=== PATIENT | male | born 1950 | race Caucasian/White ===

== ENCOUNTER → 2016-09-10 | Outpatient (CLI) | payer BC ==
[~2016-09-10] MED LIST: 5-HT1CAP PO; ASPCH81X PO; B-COCAP2 PO; CHOL1000 PO; CLB/200 PO; IBUP-1427 PO; MULT-513 PO; OMEG10007 PO; OMEP20CA9 PO; PRAV20TA PO; RANI300T2 PO; RANI75TA19 PO; RIZA10TA19 PO; VITAMIN D PO; ZPAK; [UNRECOGNIZED DRUG - OTHER] PO; [UNRECOGNIZED DRUG - OTHER] PO
[2016-09-10 11:06] LABS: HEMATOCRIT 42.4 % (42-52); MEAN CELL VOLUME 90.2 fL (80-100); MEAN CORPUSCULAR HEMOGLOBIN 31.7 pg (25-34); MEAN CORPUSCULAR HGB CONC 35.1 g/dl (32-36); MEAN PLATELET VOLUME 10.5 fL (7.4-10.4); PLATELET COUNT 219 K/uL (130-400)
[2016-09-10 11:47] LABS: FERRITIN 93.3 ng/ml (8.0-388.0)
== END | disposition home or self-care (01) ==
LOC: C.LAB 10:34
DX: D50.9 Iron deficiency anemia, unspecified (principal); E55.9 Vitamin D deficiency, unspecified; K90.9 Intestinal malabsorption, unspecified

== ENCOUNTER 2017-01-13 03:33 | Emergency (ER) | payer BC ==
[~2017-01-13] VITALS: Ht 180.3 cm; Wt 78.6 kg
[~2017-01-13 03:33] MED LIST changes: -5-HT1CAP PO; -CHOL1000 PO; -IBUP-1427 PO; -OMEG10007 PO; -RANI300T2 PO
[2017-01-13 03:38] VITALS: TEMP 36.8; Ht 180.3 cm; Wt 78.6 kg
--- NOTE | 2017-01-13 03:50 | EMERGENCY ROOM VISIT NOTE ---
History Report prepared by Latasha: Francoise Cardenas Under the Supervision of: Dr. Hansel Ash M.D. First contact with patient: 03:35 Stated Complaint: CHEST PAIN History of Present Illness The patient is a 66 year old male who presents to the Emergency Room with complaints of sudden chest pain that began around 0130 this morning. The patient states that this morning he was woken with sudden chest pain and additionally noticed left shoulder and left arm. He describes his pain in his chest as a tightness. The patient states that he became diaphoretic and woke his . He denies any nausea or vomiting. The patient states that his chest pain has slightly alleviated, but states that he still has the left shoulder and left arm pain. The patient's notes that he gave the patient a 500 mg Octavio extra strength aspirin prior to arrival. The patient reports that he takes 81 mg of aspirin daily. He states that he now feels weak, but denies any shortness of breath. The patient states that he recently traveled [place] and [facility] and notes that he has had some back pain. He denies any history of blood clots. The patient states that he has nitroglycerin at home, but denies using it. He reports a history of a pacemaker. 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 He reports that he has had increased swelling to his lower extremities. Source of History: patient, spouse/significant other () Onset: 0130 this morning Position: chest Quality: other (tightness) Timing: other (sudden) Associated Symptoms: + back pain, No SOB, No nausea, No vomiting Note: Associated Symptoms: left shoulder pain, left arm pain, increased swelling to lower extremities. Review of Systems See HPI for pertinent positives & negatives. A total of 10 systems reviewed and were otherwise negative. Past Medical & Surgical Medical Problems: (1) Hiatal hernia (2) HTN (hypertension) (3) Pacemaker Surgical Problems: (1) S/P appendectomy Family History Heart disease Hypertension Social History Smoking Status: Never Smoker Alcohol Use: none Marital Status: Housing Status: lives with significant other Occupation Status: employed Current/Historical Medications Scheduled 2-Qym-Muhuxlcl-Niacin-Vitamin (5-Htp), 1 CAP PO DAILY Aspirin (Aspirin Chewable), 81 MG PO QAM Cholecalciferol (Vitamin D3), Unknown Dose PO DAILY Fish Oil ([place]roy-3), 1 CAP PO DAILY Multivitamins/Minerals (Mvi With Minerals), 1 TAB PO DAILY Pravastatin (Pravachol ), 10 MG PO QAM Ranitidine (Zantac), 300 MG PO HS Scheduled PRN Ibuprofen Tab (Motrin), 600 MG PO Q6H PRN for Pain Rizatriptan Benzoate (Maxalt-Field Appraiser), 10 MG PO PRN/UD PRN for Migraine Allergies Coded Allergies: Acetaminophen (Verified Adverse Reaction, Unknown, NAUSEA, 06/01/10) Replaces ROXICET SOLN Oxycodone (Verified Adverse Reaction, Unknown, NAUSEA, 06/01/10) Replaces ROXICET SOLN Physical Exam Vital Signs Date Time Temp Pulse Resp B/P (MAP) Pulse Ox O2 Delivery O2 Flow Rate FiO2 01/13/17 04:48 53 18 117/70 97 Room Air 01/13/17 03:45 53 01/13/17 03:38 36.8 52 18 125/76 97 Room Air Physical Exam GENERAL: Patient is uncomfortable appearing and in minimal distress. HEENT: No acute trauma, normocephalic atraumatic, mucous membranes moist, no nasal congestion, no scleral icterus. NECK: No stridor, no adenopathy, no meningismus, trachea is midline. LUNGS: No dyspnea. Clear to auscultation and equal bilaterally. No wheeze, no rhonchi. HEART: Regular rate and rhythm. No murmurs, rubs, gallops appreciated. ABDOMEN: Soft, nontender, bowel sounds positive, no masses appreciated, no peritonitis. BACK: No midline tenderness, no CVA tenderness EXTREMITIES: Normal motion all extremities, no cyanosis, no edema. NEUROLOGIC: Alert and oriented, no acute motor or sensory deficits, no focal weakness, cranial nerves grossly intact. SKIN: No rash, no jaundice, no diaphoresis. Medical Decision & Procedures ER Provider Diagnostic Interpretation: X ray results are stated below per my interpretation: Chest: 1 view: No infiltrate, no effusion, normal cardiac border. Laboratory Results 01/13/17 04:00 Red Blood Count 4.67, Mean Corpuscular Volume 92.3, Mean Corpuscular Hemoglobin 31.5, Mean Corpuscular Hemoglobin Concent 34.1, Mean Platelet Volume 10.8, Neutrophils (%) (Auto) 46.6, Lymphocytes (%) (Auto) 38.4, Monocytes (%) (Auto) 8.7, Eosinophils (%) (Auto) 5.6, Basophils (%) (Auto) 0.5, Neutrophils # (Auto) 2.89, Lymphocytes # (Auto) 2.38, Monocytes # (Auto) 0.54, Eosinophils # (Auto) 0.35, Basophils # (Auto) 0.03 01/13/17 04:00 Test 01/13/17 04:00 White Blood Count 6.20 K/uL (4.8-10.8) Red Blood Count 4.67 M/uL (4.7-6.1) Hemoglobin 14.7 g/dL (14.0-18.0) Hematocrit 43.1 % (42-52) Mean Corpuscular Volume 92.3 fL (80-100) Mean Corpuscular Hemoglobin 31.5 pg (25-34) Mean Corpuscular Hemoglobin Concent 34.1 g/dl (32-36) Platelet Count 217 K/uL (130-400) Mean Platelet Volume 10.8 fL (7.4-10.4) Neutrophils (%) (Auto) 46.6 % Lymphocytes (%) (Auto) 38.4 % Monocytes (%) (Auto) 8.7 % Eosinophils (%) (Auto) 5.6 % Basophils (%) (Auto) 0.5 % Neutrophils # (Auto) 2.89 K/uL (1.4-6.5) Lymphocytes # (Auto) 2.38 K/uL (1.2-3.4) Monocytes # (Auto) 0.54 K/uL (0.11-0.59) Eosinophils # (Auto) 0.35 K/uL (0-0.5) Basophils # (Auto) 0.03 K/uL (0-0.2) RDW Standard Deviation 44.4 fL (36.4-46.3) RDW Coefficient of Variation 13.2 % (11.5-14.5) Immature Granulocyte % (Auto) 0.2 % Immature Granulocyte # (Auto) 0.01 K/uL (0.00-0.02) D-Dimer 320 ug/L FEU (0-500) Anion Gap 4.0 mmol/L (3-11) Est Creatinine Clear Calc Drug Dose 72.2 ml/min Estimated GFR () 81.8 Estimated GFR (Non- 70.6 BUN/Creatinine Ratio 15.8 (10-20) Calcium Level 9.0 mg/dl (8.5-10.1) Total Creatine Kinase 155 U/L (39-308) Creatine Kinase MB 2.2 ng/ml (0.5-3.6) Creatine Kinase MB Ratio 1.4 (0-3.0) Troponin I < 0.015 ng/ml (0-0.045) Laboratory results as reviewed by me. ECG Indication: chest pain Rate (beats per minute): 51 Rhythm: other (atrial paced) Findings: no acute ischemic change, no ectopy Change: no significant change ED Course 0338: The patient was evaluated in room B9. A complete history and physical exam was performed. 0506: I reevaluated the patient and he is feeling well. He states that he had a stress test two months ago that was normal. I discussed the exam findings with him thus far and he would like to do a cardiac rule out in the emergency department and go home if possible. I rediscussed the onset of his pain, and he reiterates that it was at 0130. Thus, he will have a repeat troponin at 0730. 0700: The patient was signed out to Dr. Caldera at change of shift pending repeat Troponin. Medical Decision Differential: Cardiac Ischemia (STEMI, NSTEMI, Unstable Angina, etc), Aortic Dissection, Arrhythmia, Pulmonary Embolism, Pneumonia, Pneumothorax, MSK, Infectious, Pericarditis/Myocarditis, Esophageal Rupture, Gastrointestinal, amongst other pathologies entertained. Medication Reconciliation: I attest that I have personally reviewed the patient 's current medication list. Blood pressure screening: Patient was found to have an elevated blood pressure and was referred to their primary doctor for recheck and further treatment. 66 yr old male with history of what sounds like sick sinus syndrome resulting in pacer 4 years ago. At that time with cath which reports at 20% occlusions. Notes stress test in last few months which he reports was normal. Follows closely with [facility] and states he can get in touch with them easily. Left upper chest/shoulder pain radiating from neck. Seems MSK in that movement makes worse. Admits recent travel as well as heavy lifting last few days. Symptoms onset at ~1:30am thus plan will be to do repeat Trop at 7:30a which will be 6 hours post initial symptoms. Initial Trop EKG negative. Dimer negative and with low risk PE I feel CT PE unnecessary. No evidence of dissection nor infectious etiology. Already had ASA at home. Signed out to Dr Caldera with plan await repeat trop then discharge home if normal with follow up with [facility]. Impression Primary Impression: Left sided chest pain Scribe Attestation The scribe's documentation has been prepared under my direction and personally reviewed by me in its entirety. I confirm that the note above accurately reflects all work, treatment, procedures, and medical decision making performed by me. Departure Information Dispostion Home / Self-Care Referrals Donta Irving Jr,D.O. (PCP) Patient Instructions ED Chest Pain Atypical Unkn Cause, My [facility] Additional Instructions Your EKG was similar to previous and you had two negative cardiac enzymes. With recent normal stress testing it was felt discharge reasonable as long as you contact your neurology physician assistant as soon as possible. We are always here to help and if you feel you are having worsening or changing symptoms return immediately for further evaluation.
[2017-01-13 04:24] LABS: BLOOD UREA NITROGEN 17 mg/dl (7-18); BUN/CREATININE RATIO 15.8 (10-20); CARBON DIOXIDE 28 mmol/L (21-32); CHLORIDE 110 mmol/L (98-107); GLUCOSE 87 mg/dl (70-99); POTASSIUM 3.6 mmol/L (3.5-5.1); SODIUM 142 mmol/L (136-145)
[2017-01-13 04:29] LABS: CKMB/CK RATIO 1.4 (0-3.0)
[2017-01-13 04:30] LABS: BASO % 0.5 %; BASO ABS # 0.03 K/uL (0-0.2); COMPLETE YES; EOS % 5.6 %; HEMATOCRIT 43.1 % (42-52); IG% 0.2 %; LYMPH % 38.4 %; LYMPH ABS # 2.38 K/uL (1.2-3.4); MEAN CELL VOLUME 92.3 fL (80-100); MEAN CORPUSCULAR HEMOGLOBIN 31.5 pg (25-34); MEAN CORPUSCULAR HGB CONC 34.1 g/dl (32-36); MEAN PLATELET VOLUME 10.8 fL (7.4-10.4); MONO % 8.7 %; NEUT % 46.6 %; PLATELET COUNT 217 K/uL (130-400); RED BLOOD COUNT 4.67 M/uL (4.7-6.1)
[2017-01-13] MEDS ORDERED: RANI300T2 PO (04:40)
[2017-01-13] MEDS ORDERED: IBUP-1427 PO (04:42)
[2017-01-13] MEDS ORDERED: OMEG10007 PO (04:43)
[2017-01-13] MEDS ORDERED: CHOL1000 PO (04:44)
[2017-01-13] MEDS ORDERED: 5-HT1CAP PO (04:45)
--- NOTE | 2017-01-13 07:37 | DIAGNOSTIC IMAGING REPORT ---
CHEST ONE VIEW PORTABLE CLINICAL HISTORY: Chest Pain dyspnea COMPARISON STUDY: 06/21/2016 FINDINGS: Permanent bipolar cardiac pacemaker. Diaphragms smooth. Lungs are clear. IMPRESSION: No acute process. Electronically signed by: Joseph Madrid M.D. 01/13/2017 7:36 AM Dictated Date/Time: 01/13/2017 7:34 AM
--- NOTE | 2017-01-13 08:29 | EMERGENCY ROOM VISIT NOTE ---
ED Visit Note 66-year-old male with chest and neck pain was signed off to me at change of shift from Dr. Ash. The patient was reevaluated by me at 0820. The patient now complains only of some left-sided neck pain. The patient has a history of driving long distances recently. He also has been doing some heavy shoveling. The patient has a history of a hiatal hernia. 2 EKGs and troponins 6 hours apart reveal no signs of an acute cardiac incident. I do not believe the patient's pain is cardiac in origin. The patient is to take Tylenol as needed for neck pain. He is encouraged to apply heat to his neck. He will continue using ranitidine for the reflux. The patient is to follow-up with his family physician.
[2017-01-13 08:45] VITALS: BP 117/75; PULSE 61; O2SAT 96
== END 2017-01-13 08:42 | disposition home or self-care (01) ==
LOC: C.EDB 03:33 → EDBD 03:33 → C.EDB 08:42
DX: R07.9 Chest pain, unspecified (principal); M79.622 Pain in left upper arm; M25.512 Pain in left shoulder; R60.0 Localized edema; K44.9 Diaphragmatic hernia without obstruction or gangrene; I10 Essential (primary) hypertension; Z79.82 Long term (current) use of aspirin; Z95.0 Presence of cardiac pacemaker; Z82.49 Family history of ischemic heart disease and other diseases of the circulatory system

== ENCOUNTER → 2017-01-21 | Outpatient (CLI) | payer BC ==
[~2017-01-21] MED LIST changes: +5-HT1CAP PO; -B-COCAP2 PO; +CHOL1000 PO; -CLB/200 PO; +IBUP-1427 PO; +OMEG10007 PO; -OMEP20CA9 PO; +OPTIRAY 320 IV PRN; +RANI300T2 PO; -RANI75TA19 PO; -VITAMIN D PO; -ZPAK; -[UNRECOGNIZED DRUG - OTHER] PO; -[UNRECOGNIZED DRUG - OTHER] PO
--- NOTE | 2017-01-21 13:18 | DIAGNOSTIC IMAGING REPORT ---
CHEST CTA for PULMONARY ARTERIES CT DOSE: 584.10 mGycm HISTORY: Chest pain dyspnea TECHNIQUE: Multiaxial CT images of the chest were performed following the intravenous administration of contrast to evaluate the pulmonary arteries. Maximal intensity projection images were also obtained. COMPARISON STUDY: 05/26/2009 FINDINGS: There is a normal caliber thoracic aorta with no evidence for dissection. There is no evidence for pulmonary embolus. No pleural effusions. No pneumothorax. The liver and spleen are unremarkable. No mediastinal or hilar lymphadenopathy. The central airways are patent. The lungs are clear. Scattered bibasilar platelike atelectasis. IMPRESSION: No evidence for pulmonary embolus. Scattered bibasilar platelike atelectasis. Lungs otherwise are clear. Electronically signed by: Joseph Madrid M.D. 01/21/2017 1:17 PM Dictated Date/Time: 01/21/2017 1:10 PM
== END | disposition home or self-care (01) ==
LOC: C.CTS 12:20
DX: R07.1 Chest pain on breathing (principal); R06.00 Dyspnea, unspecified; M79.604 Pain in right leg

== ENCOUNTER → 2017-04-25 | Outpatient (CLI) | payer BC ==
[~2017-04-25] MED LIST changes: -OPTIRAY 320 IV PRN
[2017-04-25 10:12] LABS: ALT/SGPT 37 U/L (12-78); AST/SGOT 17 U/L (15-37); BLOOD UREA NITROGEN 18 mg/dl (7-18); BUN/CREATININE RATIO 16.3 (10-20); CARBON DIOXIDE 27 mmol/L (21-32); CHLORIDE 107 mmol/L (98-107); GLUCOSE 84 mg/dl (70-99); POTASSIUM 3.9 mmol/L (3.5-5.1); SODIUM 140 mmol/L (136-145)
[2017-04-25 10:13] LABS: CHOLESTEROL 197 mg/dl (0-200); CHOLESTEROL/HDL RATIO 2.9; HDL CHOLESTEROL 67 mg/dl; LDL CHOLESTEROL CALCULATED 110 mg/dl; TRIGLYCERIDES 98 mg/dl (0-150); VERY LOW DENSITY LIPOPROT CALC 20 mg/dl
== END | disposition home or self-care (01) ==
LOC: C.LAB 07:26
DX: E78.5 Hyperlipidemia, unspecified (principal); K21.9 Gastro-esophageal reflux disease without esophagitis

== ENCOUNTER → 2017-08-31 | Outpatient (CLI) | payer BC | END | disposition home or self-care (01) | LOC: C.LAB 07:28 | DX: E78.5 Hyperlipidemia, unspecified (principal); E61.1 Iron deficiency; E55.9 Vitamin D deficiency, unspecified ==